=== PATIENT | male | born 1960 | race Caucasian/White ===

== ENCOUNTER → 2016-11-08 | Outpatient (CLI) | payer BC ==
[~2016-11-08] MED LIST: ASPI325T6 PO; DIABETA 5MG5 MG/TAB PO; LIPITOR 80MG80 MG PO; LOPRESSOR 225 MG/TAB PO; PLAVIX 75MG TAB75 MG PO; TYLENOL 325MG325 MG PO; ZESTRIL2.5 MG PO
== END ==
LOC: COL.VAS 10:00
DX: M79.89 Other specified soft tissue disorders (principal); M79.661 Pain in right lower leg